=== PATIENT | female | born 1975 | race Caucasian/White ===

== ENCOUNTER 2020-11-25 17:18 | Emergency (ER) | payer OTHER ==
[2020-11-25 18:34] LABS: BASOPHIL 0.5 % (0-2); EOSINOPHIL 1.9 % (0-5); HCT 47.3 % (37.0-47.0); HGB 15.7 g/dl (12.5-16.0); LYMPHOCYTE 30.5 % (15-48); MCH 30.8 pg (25.0-31.0); MCHC 33.2 g/dL (32.0-36.0); MCV 92.7 fL (78.0-100.0); MONOCYTE 5.1 % (0-12); MPV 8.5 fL (6.0-9.5); NEUTROPHIL 61.7 % (41-80); NRBC 0; PLT 386 K/uL (150-400); RDW 12.1 % (11.5-14.0); WBC 11.8 K/uL (4.0-10.5)
[2020-11-25 18:55] LABS: ALBUMIN 3.9 g/dL (3.4-5.0); BILIRUBIN - TOTAL 0.3 mg/dL (0.2-1.0); BUN/CREAT RATIO (CALC) 13.1 RATIO; CREATININE 0.61 mg/dL (0.51-0.95); GLOBULIN (CALCULATION) 4.1 g/dL
[2020-11-25 21:58] LABS: BILIRUBIN NEGATIVE (NEGATIVE); BLOOD TRACE-INTACT Ery/uL (NEGATIVE); CLARITY CLEAR (CLEAR); COLOR YELLOW (YELLOW); GLUCOSE (U) NORMAL (NORMAL); LEUKOCYTES NEGATIVE Leu/uL (NEGATIVE); NITRITE NEGATIVE (NEGATIVE); PROTEIN NEGATIVE (NEGATIVE); UROBILINOGEN 0.2 mg/dL (0.2-1.0)
[2020-11-25 22:47] LABS: BACTERIA TRACE; URINARY RBC RARE; URINARY WBC RARE
[2020-11-26] MEDS ORDERED: BENTYL10 MG PO (01:23)
[2020-11-26] MEDS ORDERED: CIPRO500 MG PO (01:23)
[2020-11-26] MEDS ORDERED: ONDANSETRON ODT4 MG SL (01:23)
[2020-11-26] MEDS ORDERED: DIFLUCAN150 MG PO (01:55)
== END 2020-11-26 01:50 | disposition home or self-care (01) ==
LOC: FER 17:18
PROVIDERS: Emergency Medicine
DX: K52.9 Noninfective gastroenteritis and colitis, unspecified (principal); K92.1 Melena; E11.9 Type 2 diabetes mellitus without complications; F17.210 Nicotine dependence, cigarettes, uncomplicated; Z90.710 Acquired absence of both cervix and uterus; Z88.8 Allergy status to other drugs, medicaments and biological substances
CPT/HCPCS: 36415; 80053; 81001; 82150; 82270; 83690; 85025; J2405; J7030; Q9967

== ENCOUNTER 2021-02-13 16:38 | Emergency (ER) | payer OTHER ==
[~2021-02-13 16:38] MED LIST: BENTYL10 MG PO; CIPRO500 MG PO; DIFLUCAN150 MG PO; ONDANSETRON ODT4 MG SL
[2021-02-13 18:07] LABS: BASOPHIL 0.1 % (0-2); EOSINOPHIL 0.5 % (0-5); HCT 45.9 % (37.0-47.0); HGB 15.5 g/dl (12.5-16.0); LYMPHOCYTE 13.1 % (15-48); MCH 30.7 pg (25.0-31.0); MCHC 33.8 g/dL (32.0-36.0); MCV 90.9 fL (78.0-100.0); MONOCYTE 5.4 % (0-12); MPV 9.2 fL (6.0-9.5); NEUTROPHIL 80.5 % (41-80); NRBC 0; PLT 383 K/uL (150-400); RBC 5.05 M/uL (4.20-5.40); RDW 12.3 % (11.5-14.0); WBC 16.4 K/uL (4.0-10.5)
[2021-02-13 18:18] LABS: ALBUMIN 3.6 g/dL (3.4-5.0); BILIRUBIN - TOTAL 0.4 mg/dL (0.2-1.0); BUN/CREAT RATIO (CALC) 15.4 RATIO; CREATININE 0.52 mg/dL (0.51-0.95); GLOBULIN (CALCULATION) 3.5 g/dL; POTASSIUM 4.1 mmol/L (3.5-5.1); TOTAL PROTEIN 7.1 g/dL (6.4-8.2)
[2021-02-13 18:19] LABS: BILIRUBIN 1+ mg/dL (NEGATIVE); BLOOD 3+ Ery/uL (NEGATIVE); CLARITY CLEAR (CLEAR); COLOR YELLOW (YELLOW); GLUCOSE (U) 1+ mg/dL (NORMAL); LEUKOCYTES NEGATIVE Leu/uL (NEGATIVE); NITRITE NEGATIVE (NEGATIVE); PROTEIN NEGATIVE (NEGATIVE); SPECIFIC GRAVITY >=1.030 (1.001-1.030); UROBILINOGEN 0.2 mg/dL (0.2-1.0)
[2021-02-13 18:26] LABS: BACTERIA TRACE
[2021-02-13 18:27] LABS: MUCOUS LARGE
[2021-02-13] MEDS ORDERED: PHENERGAN25 M1 PO (20:23)
[2021-02-13] MEDS ORDERED: CIPRO500 MG PO (20:23)
[2021-02-13] MEDS ORDERED: NORCO 5-325 TA1 EACH PO (20:23)
[2021-02-13] MEDS ORDERED: METRONIDAZOLE500 MG PO (20:23)
[2021-02-13] MEDS ORDERED: DIFLUCAN150 MG PO (21:13)
== END 2021-02-13 21:05 | disposition home or self-care (01) ==
LOC: FER 16:38
PROVIDERS: Internal Medicine
DX: K52.9 Noninfective gastroenteritis and colitis, unspecified (principal); E11.65 Type 2 diabetes mellitus with hyperglycemia; F17.210 Nicotine dependence, cigarettes, uncomplicated; Z88.8 Allergy status to other drugs, medicaments and biological substances
CPT/HCPCS: 36415; 80053; 81001; 84145; 85025; J1170; J1885; J2405; J2550; J7030